=== PATIENT | female | born 1960 ===

== ENCOUNTER 2018-06-06 22:58 | Inpatient (IN) | payer BC ==
[2018-06-06] MEDS ORDERED: Dextrose 50% SYRINGE Inj (50 ml) ONE (23:19)
[2018-06-06] MEDS ORDERED: Dextrose 50% SYRINGE Inj (50 ml) IV STA (23:28)
[2018-06-06 23:55] LABS: BASO % 0.5 % (0.0-2.0); EOS % 0.7 % (0.0-4.0); HEMOGLOBIN 12.1 g/dL (11.0-16.0); LYMPH # 1.3 K/uL (1.0-4.3); LYMPH % 30.9 % (20.0-40.0); MEAN CELL VOLUME 92.3 fL (81.0-99.0); MEAN CORPUSCULAR HEMOGLOBIN 32.2 pg (27.0-31.0); MEAN CORPUSCULAR HGB CONC 34.9 g/dL (33.0-37.0); MEAN PLATELET VOLUME 8.3 fL (7.2-11.7); MONO # 0.5 K/uL (0.0-0.8); MONO % 11.4 % (0.0-10.0); NEUT # 2.4 K/uL (1.8-7.0); NEUT % 56.5 % (50.0-75.0); NRBC % 0.1 % (0.0-2.0); RBC 3.74 Mil/uL (3.80-5.20); RED CELL DISTRIBUTION WIDTH 13.3 % (11.5-14.5); WHITE BLOOD COUNT 4.3 K/uL (4.8-10.8)
[2018-06-07 00:03] LABS: INR 1.1; PROTHROMBIN TIME 12.4 SECONDS (9.7-12.2)
[2018-06-07 00:07] LABS: ALB/GLOB RATIO 1.6 (1.0-2.1); ALBUMIN 4.2 g/dL (3.5-5.0); ALT/SGPT 27 U/L (9-52); AST/SGOT 19 U/L (14-36); BLOOD UREA NITROGEN 14 mg/dL (7-17); CALCIUM 9.6 mg/dl (8.6-10.4); GFR NON-AFRICAN AMERICAN > 60
--- NOTE | 2018-06-07 00:24 | C.PDOC ---
History Of Present Illness 57 year old female with a Hx of hypothyroidism and gastritis brought in by EMS after having a syncopal episode at approximately 2230. Patient states she felt generalized weakness and syncopized for several minutes as per family. Patient notes she hit her head on the floor and admits to some dizziness. Denies headache, chest pain, SOB, abdominal pain, nausea, vomiting, diarrhea, or prior Hx of syncope. Time Seen by Provider: 06/06/18 23:08 Chief Complaint (Nursing): Syncope History Per: Patient History/Exam Limitations: no limitations Onset/Duration Of Symptoms: Hrs Current Symptoms Are (Timing): Still Present Number Of Syncopal Episodes: 1 Activity At Onset Of Symptoms: Standing Associated Symptoms Preceding Syncopal Episode: Other (Generalized weakness) Seizure Or Post-ictal Symptoms: None Fall Associated With With Symptoms: Yes, Positive Injury Recent travel outside of the [place]: No - Symptoms Of CVA Associated Symptoms: denies: Impaired Speech, Seizure Activity, New Vision Deficit(Left), New Vision Deficit(Right), Decreased Ability To Walk, New Confusion Past Medical History Reviewed: Historical Data, Nursing Documentation, Vital Signs Vital Signs: Last Vital Signs Temp 98.4 F 06/06/18 23:05 Pulse 64 06/07/18 00:58 Resp 18 06/07/18 00:58 BP 111/57 L 06/07/18 00:58 Pulse Ox 98 06/07/18 00:58 - Medical History PMH: Hypothyroidism Denies: Chronic Kidney Disease Family History: States: Unknown Family Hx - Social History Hx Alcohol Use: Yes Hx Substance Use: No - Immunization History Hx Tetanus Toxoid Vaccination: No Hx Influenza Vaccination: No Hx Pneumococcal Vaccination: No Review Of Systems Except As Marked, All Systems Reviewed And Found Negative. Constitutional: Positive for: Weakness Neurological: Positive for: Dizziness, Other (Syncope) Physical Exam - Physical Exam Appears: Non-toxic, Other (Fatigued) Skin: Normal Color, Warm, Dry Head: Atraumatic, Normacephalic Eye(s): bilateral: Normal Inspection, PERRL, EOMI Oral Mucosa: Moist Neck: Normal, Supple Chest: Symmetrical, No Tenderness Cardiovascular: Rhythm Regular Respiratory: Normal Breath Sounds, No Rales, No Rhonchi, No Wheezing Gastrointestinal/Abdominal: Soft, No Tenderness Extremity: Normal ROM (x4) Neurological/Psych: Oriented x3, Normal Speech, Normal Cognition, Normal Motor, Normal Sensation Gait: Steady ED Course And Treatment - Laboratory Results Result Diagrams: 06/06/18 23:52 06/06/18 23:52 ECG: Interpreted By Me, Viewed By Me ECG Rhythm: Atrial Flutter ECG Interpretation: Normal Interpretation Of ECG: No acute ST/T wave changes Rate From EC O2 Sat by Pulse Oximetry: 95 (Room air) Pulse Ox Interpretation: Normal - CT Scan/US CT head Other Rad Studies (CT/US): Read By Radiologist, Radiology Report Reviewed CT/US Interpretation: EXAM: CT Head With Intravenous Contrast. EXAM DATE/TIME : 06/06/2018 11:25 PM. CLINICAL HISTORY: 57 years old, female; Signs and symptoms; Syncope and collapse. TECHNIQUE: Axial computed tomography images of the head/brain with intravenous contrast. All CT scans at this facility use at least one of these dose optimization techniques: automated. exposure control ; mA and/or kV adjustment per patient size (includes targeted exams where dose is. matched to clinical indication); or iterative reconstruction. Coronal and sagittal reformatted images were created and reviewed. COMPARISON: No relevant prior studies available. FINDINGS: Brain: Normal. No hemorrhage. No significant white matter disease. No edema. Ventricles: Normal. No ventriculomegaly. Bones/joints: Normal. No acute fracture. Sinuses: Normal as visualized. No acute sinusitis. Mastoid air cells: Normal as visualized. No mastoid effusion. Soft tissues: Normal. IMPRESSION: No acute findings. Progress Note: CT head, EKG, and blood work ordered. Disposition Counseled Patient/Family Regarding: Studies Performed, Diagnosis, Need For Followup - Disposition Referrals: [facility] [Outside] Disposition: AGAINST MEDICAL ADVICE Disposition Time: 01:10 Condition: STABLE Additional Instructions: YOU ARE SIGNING OUT AGAINST MY MEDICAL ADVICE. YOU RISK WORSENING OF CURRENT CONSDITION, AND POSSIBLY EVEN ! DRINK PLENTY OF FLUIDS AND EAT REGULARLY RETURN TO EMERGENCY ROOM IMMEDIATELY IF SYMPTOMS WORSEN FOLLOW UP WITH YOUR DOCTOR/CLINIC IN 1-2 DAYS ESTS FIRMANDO CONTRA GIDEON ESPINO. USTED RIESGOS EL DESARROLLO DE LA CONSIDERACIN ACTUAL, Y POSIBLEMENTE INCLUSO LA MUERTE! JOAN ABUNDANTE LQUIDO Y COMA REGULARMENTE VUELVA A LA ALEX DE EMERGENCIA INMEDIATAMENTE SI LOS SNTOMAS FUNCIONAN SEGUIMIENTO CON STRAUSS MDICO / CLNICA EN 1-2 ST Instructions: Syncope (Fainting) (DC) Forms: [employer] (Italian), (AMA) Informed Refusal Print Language: RWANDAN - POA Present On Arrival: None - Clinical Impression Clinical Impression: Syncope, Left against medical advice - Scribe Statement The provider has reviewed the documentation as recorded by the Scribe Jovi Lynne All medical record entries made by the Scribe were at my direction and personally dictated by me. I have reviewed the chart and agree that the record accurately reflects my personal performance of the history, physical exam, medical decision making, and the department course for this patient. I have also personally directed, reviewed, and agree with the discharge instructions and disposition.
[2018-06-07] MEDS ORDERED: Potassium Chloride 20 mEq ER Tab PO STA (00:26)
[2018-06-07] MEDS ORDERED: Potassium Chloride 20 mEq ER Tab PO ONE (00:38)
[2018-06-07] MEDS: Levothyroxine 75 MCG TAB PO SCH (05:51)
[2018-06-07 07:42] VITALS: RESP 20
[2018-06-07 08:44] LABS: CK-MB 1.16 ng/mL (0.0-3.38)
[2018-06-07] MEDS: Pantoprazole 40 mg EC Tab PO SCH (09:14)
[2018-06-07] MEDS: Enoxaparin 40 mg Syringe SC SCH (09:14)
--- NOTE | 2018-06-07 10:34 | CT ---
Date of service: 06/06/2018 PROCEDURE: CT HEAD WITH CONTRAST HISTORY: syncope COMPARISON: No prior study available comparison TECHNIQUE: Axial computed tomography images were obtained through the head/brain with intravenous contrast. Contrast dose: Radiation dose: Total exam DLP = 939.04 the the mGy-cm. This CT exam was performed using one or more of the following dose reduction techniques: Automated exposure control, adjustment of the mA and/or kV according to patient size, and/or use of iterative reconstruction technique. FINDINGS: HEMORRHAGE: No intracranial hemorrhage. BRAIN: No mass, mass effect or edema. No abnormal intracranial enhancement. No atrophy or chronic microvascular ischemic changes. VENTRICLES: Unremarkable. No hydrocephalus. CALVARIUM: Unremarkable. PARANASAL SINUSES: Minor mucosal thickening seen in the right maxillary antrum. MASTOID AIR CELLS: Unremarkable as visualized. No mastoid effusion. OTHER FINDINGS: None. IMPRESSION: Normal contrast enhanced CT of the head.
--- NOTE | 2018-06-07 12:44 | CP.PCM.CON ---
History of Present Illness - History of Present Illness History of Present Illness: 57 year old female with a Hx of hypothyroidism and gastritis brought in by EMS after having a syncopal episode at approximately 2230. Patient states she felt generalized weakness and syncopized for several minutes as per family. Patient notes she hit her head on the floor and admits to some dizziness. Denies headache, chest pain, SOB, abdominal pain, nausea, vomiting, diarrhea, or prior Hx of syncope. Ordinarily patient is mod active works 2 jobs and denies ANGINA or CHF Cardiac Hx: No known CAD/AL/CVA PMHX: mild gastritis chronic stable, Hypothyroidism chronic stable, Hx of thyroid nodule biopsy told was negative, Hx of low PLT HEME w/u was normal PSHX: x2, breast biopsy, thyroid byopsy Social: non-smoker, no ETOH or Drugs Review of Systems - Review of Systems All systems: reviewed and no additional remarkable complaints except Past Patient History - Infectious Disease Hx of Infectious Diseases: None - Past Medical History & Family History Past Medical History?: Yes - Past Social History Smoking Status: Never Smoked - CARDIAC Hx Cardiac Disorders: No - PULMONARY Hx Respiratory Disorders: No - NEUROLOGICAL Hx Neurological Disorder: No - HEENT Hx HEENT Problems: No - RENAL Hx Chronic Kidney Disease: No - ENDOCRINE/METABOLIC Hx Hypothyroidism: Yes - HEMATOLOGICAL/ONCOLOGICAL Hx Blood Disorders: No - INTEGUMENTARY Hx Dermatological Problems: No - MUSCULOSKELETAL/RHEUMATOLOGICAL Hx Falls: Yes - GASTROINTESTINAL Hx Gastrointestinal Disorders: No - GENITOURINARY/GYNECOLOGICAL Hx Genitourinary Disorders: No - PSYCHIATRIC Hx Substance Use: No - SURGICAL HISTORY Hx Surgeries: Yes Hx Breast Biopsy: Yes (LEFT BREAST) Hx Section: Yes (X2) - ANESTHESIA Hx Anesthesia: Yes Hx Anesthesia Reactions: No Hx Malignant Hyperthermia: No Meds Allergies/Adverse Reactions: Allergies Allergy/AdvReac Type Severity Reaction Status Date / Time No Known Allergies Allergy Unverified 06/26/14 11:29 - Medications Medications: Current Medications Aspirin (Aspirin) 325 mg PO DAILY [facility] Last Admin: 06/07/18 09:14 Dose: 325 mg Enoxaparin Sodium (Lovenox) 40 mg SC DAILY [facility] Last Admin: 06/07/18 09:14 Dose: 40 mg Ergocalciferol (Drisdol 50,000 Intl Units Cap) 1 cap PO QWK [facility] Levothyroxine Sodium (Synthroid) 75 mcg PO DAILY@0630 [facility] Last Admin: 06/07/18 05:51 Dose: 75 mcg Pantoprazole Sodium (Protonix Ec Tab) 40 mg PO DAILY [facility] Last Admin: 06/07/18 09:14 Dose: 40 mg Pneumococcal Polyvalent Vaccine (Pneumovax 23 Vaccine) 0.5 ml IM .ONCE ONE Stop: 06/08/18 10:01 Physical Exam - Constitutional Appears: No Acute Distress - Head Exam Head Exam: ATRAUMATIC, NORMAL INSPECTION, NORMOCEPHALIC - Eye Exam Eye Exam: EOMI, Normal appearance, PERRL - ENT Exam ENT Exam: Mucous Membranes Moist, Normal Exam - Neck Exam Neck exam: Positive for: Normal Inspection - Respiratory Exam Respiratory Exam: Clear to Auscultation Bilateral, NORMAL BREATHING PATTERN. absent: Rhonchi, Wheezes - Cardiovascular Exam Cardiovascular Exam: REGULAR RHYTHM, +S1, +S2. absent: Gallop, Rubs, +S4, Systolic Murmur - GI/Abdominal Exam GI & Abdominal Exam: Normal Bowel Sounds, Soft. absent: Tenderness - Extremities Exam Extremities exam: Positive for: normal inspection, pedal pulses present. Negative for: calf tenderness, pedal edema - Back Exam Back exam: NORMAL INSPECTION. absent: paraspinal tenderness, rash noted - Neurological Exam Neurological exam: Alert, CN II-XII Intact, Oriented x3 - Psychiatric Exam Psychiatric exam: Normal Affect, Normal Mood - Skin Skin Exam: Intact, Normal Color, Warm Results - Vital Signs Recent Vital Signs: Last Vital Signs Temp 98.0 F 06/07/18 07:00 Pulse 61 06/07/18 07:05 Resp 20 06/07/18 07:00 BP 102/64 06/07/18 07:00 Pulse Ox 100 06/07/18 07:00 - Labs Result Diagrams: 06/06/18 23:52 06/06/18 23:52 Labs: Laboratory Results - last 24 hr 06/06/18 06/06/18 06/06/18 23:48 23:52 23:52 WBC 4.3 L RBC 3.74 L Hgb 12.1 Hct 34.6 MCV 92.3 MCH 32.2 H MCHC 34.9 RDW 13.3 Plt Count 172 MPV 8.3 Neut % (Auto) 56.5 Lymph % (Auto) 30.9 [place] % (Auto) 11.4 H Eos % (Auto) 0.7 Baso % (Auto) 0.5 Neut # (Auto) 2.4 Lymph # (Auto) 1.3 [place] # (Auto) 0.5 Eos # (Auto) 0.0 Baso # (Auto) 0.0 PT 12.4 H INR 1.1 APTT 33 Sodium Potassium Chloride Carbon Dioxide Anion Gap BUN Creatinine Est GFR ( Amer) Est GFR (Non-Af Amer) POC Glucose (mg/dL) 160 H Random Glucose Calcium Total Bilirubin AST ALT Alkaline Phosphatase Total Creatine Kinase CK-MB (Mass) Troponin I Total Protein Albumin Globulin Albumin/Globulin Ratio [facility] 3rd Generation 06/06/18 06/07/18 06/07/18 23:52 00:20 06:58 WBC RBC Hgb Hct MCV MCH MCHC RDW Plt Count MPV Neut % (Auto) Lymph % (Auto) [place] % (Auto) Eos % (Auto) Baso % (Auto) Neut # (Auto) Lymph # (Auto) [place] # (Auto) Eos # (Auto) Baso # (Auto) PT INR APTT Sodium 142 Potassium 3.2 L Chloride 103 Carbon Dioxide 30 Anion Gap 13 BUN 14 Creatinine 0.5 L Est GFR ( Amer) > 60 Est GFR (Non-Af Amer) > 60 POC Glucose (mg/dL) 82 Random Glucose 72 Calcium 9.6 Total Bilirubin 1.0 AST 19 ALT 27 Alkaline Phosphatase 54 Total Creatine Kinase 81 CK-MB (Mass) 1.10 Troponin I < 0.0120 Total Protein 6.7 Albumin 4.2 Globulin 2.6 Albumin/Globulin Ratio 1.6 [facility] 3rd Generation 2.70 06/07/18 06/07/18 07:50 10:54 WBC RBC Hgb Hct MCV MCH MCHC RDW Plt Count MPV Neut % (Auto) Lymph % (Auto) [place] % (Auto) Eos % (Auto) Baso % (Auto) Neut # (Auto) Lymph # (Auto) [place] # (Auto) Eos # (Auto) Baso # (Auto) PT INR APTT Sodium Potassium Chloride Carbon Dioxide Anion Gap BUN Creatinine Est GFR ( Amer) Est GFR (Non-Af Amer) POC Glucose (mg/dL) 98 Random Glucose Calcium Total Bilirubin AST ALT Alkaline Phosphatase Total Creatine Kinase 89 CK-MB (Mass) 1.16 Troponin I < 0.0120 Total Protein Albumin Globulin Albumin/Globulin Ratio TSH 3rd Generation - EKG Data EKG Interpreted by: Myself EKG shows normal: Sinus rhythm Rate: Normal Assessment & Plan - Assessment and Plan (Free Text) Assessment: 57 y/o with a syncopal episode > Low normal BP range > Normal EKG > AL ruled out > normal cardiovascular exam > No arrythmia on telemetry > no acute abnormality on CT head. Findings suggest vasovagal/orthostatic mediated likely dehydration No additional cardiac testing is needed healthy hydration, cardiac healthy diet suggest Stable for d/c from cardiac standpoint.
--- NOTE | 2018-06-07 17:32 | CP.PCM.CON ---
History of Present Illness - History of Present Illness History of Present Illness: CONSULT DICTATED LOC APPROXIMATELY 10 MINIUTES POST CONCUSSION SYNDROME R/O SEIZURES /VBI MRI/EEG/CAROTID/ECHO STROKE PROPHYLAXIS Past Patient History - Infectious Disease Hx of Infectious Diseases: None - Past Medical History & Family History Past Medical History?: Yes - Past Social History Smoking Status: Never Smoked - CARDIAC Hx Cardiac Disorders: No - PULMONARY Hx Respiratory Disorders: No - NEUROLOGICAL Hx Neurological Disorder: No - HEENT Hx HEENT Problems: No - RENAL Hx Chronic Kidney Disease: No - ENDOCRINE/METABOLIC Hx Hypothyroidism: Yes - HEMATOLOGICAL/ONCOLOGICAL Hx Blood Disorders: No - INTEGUMENTARY Hx Dermatological Problems: No - MUSCULOSKELETAL/RHEUMATOLOGICAL Hx Falls: Yes - GASTROINTESTINAL Hx Gastrointestinal Disorders: No - GENITOURINARY/GYNECOLOGICAL Hx Genitourinary Disorders: No - PSYCHIATRIC Hx Substance Use: No - SURGICAL HISTORY Hx Surgeries: Yes Hx Breast Biopsy: Yes (LEFT BREAST) Hx Section: Yes (X2) - ANESTHESIA Hx Anesthesia: Yes Hx Anesthesia Reactions: No Hx Malignant Hyperthermia: No Meds Allergies/Adverse Reactions: Allergies Allergy/AdvReac Type Severity Reaction Status Date / Time No Known Allergies Allergy Unverified 06/26/14 11:29 - Medications Medications: Current Medications Aspirin (Aspirin) 325 mg PO DAILY [facility] Last Admin: 06/07/18 09:14 Dose: 325 mg Enoxaparin Sodium (Lovenox) 40 mg SC DAILY [facility] Last Admin: 06/07/18 09:14 Dose: 40 mg Ergocalciferol (Drisdol 50,000 Intl Units Cap) 1 cap PO QWK [facility] Levothyroxine Sodium (Synthroid) 75 mcg PO DAILY@0630 [facility] Last Admin: 06/07/18 05:51 Dose: 75 mcg Pantoprazole Sodium (Protonix Ec Tab) 40 mg PO DAILY [facility] Last Admin: 06/07/18 09:14 Dose: 40 mg Pneumococcal Polyvalent Vaccine (Pneumovax 23 Vaccine) 0.5 ml IM .ONCE ONE Stop: 06/08/18 10:01 Results - Vital Signs Recent Vital Signs: Last Vital Signs Temp 98.0 F 06/07/18 15:40 Pulse 65 06/07/18 15:40 Resp 20 06/07/18 15:40 BP 104/61 06/07/18 15:40 Pulse Ox 96 06/07/18 15:40 - Labs Result Diagrams: 06/06/18 23:52 06/06/18 23:52 Labs: Laboratory Results - last 24 hr 06/06/18 06/06/18 06/06/18 23:48 23:52 23:52 WBC 4.3 L RBC 3.74 L Hgb 12.1 Hct 34.6 MCV 92.3 MCH 32.2 H MCHC 34.9 RDW 13.3 Plt Count 172 MPV 8.3 Neut % (Auto) 56.5 Lymph % (Auto) 30.9 [place] % (Auto) 11.4 H Eos % (Auto) 0.7 Baso % (Auto) 0.5 Neut # (Auto) 2.4 Lymph # (Auto) 1.3 [place] # (Auto) 0.5 Eos # (Auto) 0.0 Baso # (Auto) 0.0 PT 12.4 H INR 1.1 APTT 33 Sodium Potassium Chloride Carbon Dioxide Anion Gap BUN Creatinine Est GFR ( Amer) Est GFR (Non-Af Amer) POC Glucose (mg/dL) 160 H Random Glucose Hemoglobin A1c Calcium Total Bilirubin AST ALT Alkaline Phosphatase Total Creatine Kinase CK-MB (Mass) Troponin I Total Protein Albumin Globulin Albumin/Globulin Ratio TSH 3rd Generation 06/06/18 06/07/18 06/07/18 23:52 00:20 06:58 WBC RBC Hgb Hct MCV MCH MCHC RDW Plt Count MPV Neut % (Auto) Lymph % (Auto) [place] % (Auto) Eos % (Auto) Baso % (Auto) Neut # (Auto) Lymph # (Auto) [place] # (Auto) Eos # (Auto) Baso # (Auto) PT INR APTT Sodium 142 Potassium 3.2 L Chloride 103 Carbon Dioxide 30 Anion Gap 13 BUN 14 Creatinine 0.5 L Est GFR ( Amer) > 60 Est GFR (Non-Af Amer) > 60 POC Glucose (mg/dL) 82 Random Glucose 72 Hemoglobin A1c Calcium 9.6 Total Bilirubin 1.0 AST 19 ALT 27 Alkaline Phosphatase 54 Total Creatine Kinase 81 CK-MB (Mass) 1.10 Troponin I < 0.0120 Total Protein 6.7 Albumin 4.2 Globulin 2.6 Albumin/Globulin Ratio 1.6 TSH 3rd Generation 2.70 06/07/18 06/07/18 06/07/18 07:50 10:54 16:58 WBC RBC Hgb Hct MCV MCH MCHC RDW Plt Count MPV Neut % (Auto) Lymph % (Auto) [place] % (Auto) Eos % (Auto) Baso % (Auto) Neut # (Auto) Lymph # (Auto) [place] # (Auto) Eos # (Auto) Baso # (Auto) PT INR APTT Sodium Potassium Chloride Carbon Dioxide Anion Gap BUN Creatinine Est GFR ( Amer) Est GFR (Non-Af Amer) POC Glucose (mg/dL) 98 95 Random Glucose Hemoglobin A1c Calcium Total Bilirubin AST ALT Alkaline Phosphatase Total Creatine Kinase 89 CK-MB (Mass) 1.16 Troponin I < 0.0120 Total Protein Albumin Globulin Albumin/Globulin Ratio TSH 3rd Generation 06/07/18 06/07/18 17:00 17:00 WBC RBC Hgb Hct MCV MCH MCHC RDW Plt Count MPV Neut % (Auto) Lymph % (Auto) [place] % (Auto) Eos % (Auto) Baso % (Auto) Neut # (Auto) Lymph # (Auto) [place] # (Auto) Eos # (Auto) Baso # (Auto) PT INR APTT Sodium Potassium Chloride Carbon Dioxide Anion Gap BUN Creatinine Est GFR ( Amer) Est GFR (Non-Af Amer) POC Glucose (mg/dL) Random Glucose Hemoglobin A1c 5.6 Calcium Total Bilirubin AST ALT Alkaline Phosphatase Total Creatine Kinase 79 CK-MB (Mass) Troponin I Total Protein Albumin Globulin Albumin/Globulin Ratio TSH 3rd Generation
[2018-06-07 17:33] LABS: CK-MB 0.96 ng/mL (0.0-3.38)
[2018-06-07 17:38] LABS: FREE T4 1.42 ng/dL (0.78-2.19)
[2018-06-07 18:27] LABS: FOLATE 7.4 ng/mL
--- NOTE | 2018-06-07 19:12 | CP.PCM.HP ---
Past Patient History - Infectious Disease Hx of Infectious Diseases: None - Past Medical History & Family History Past Medical History?: Yes - Past Social History Smoking Status: Never Smoked - CARDIAC Hx Cardiac Disorders: No - PULMONARY Hx Respiratory Disorders: No - NEUROLOGICAL Hx Neurological Disorder: No - HEENT Hx HEENT Problems: No - RENAL Hx Chronic Kidney Disease: No - ENDOCRINE/METABOLIC Hx Hypothyroidism: Yes - HEMATOLOGICAL/ONCOLOGICAL Hx Blood Disorders: No - INTEGUMENTARY Hx Dermatological Problems: No - MUSCULOSKELETAL/RHEUMATOLOGICAL Hx Falls: Yes - GASTROINTESTINAL Hx Gastrointestinal Disorders: No - GENITOURINARY/GYNECOLOGICAL Hx Genitourinary Disorders: No - PSYCHIATRIC Hx Substance Use: No - SURGICAL HISTORY Hx Surgeries: Yes Hx Breast Biopsy: Yes (LEFT BREAST) Hx Section: Yes (X2) - ANESTHESIA Hx Anesthesia: Yes Hx Anesthesia Reactions: No Hx Malignant Hyperthermia: No Meds Allergies/Adverse Reactions: Allergies Allergy/AdvReac Type Severity Reaction Status Date / Time No Known Allergies Allergy Unverified 06/26/14 11:29 Physical Exam - Constitutional Appears: Well - Head Exam Head Exam: ATRAUMATIC, NORMAL INSPECTION, NORMOCEPHALIC - Eye Exam Eye Exam: EOMI, Normal appearance, PERRL Pupil Exam: NORMAL ACCOMODATION, PERRL - ENT Exam ENT Exam: Mucous Membranes Moist, Normal Exam - Neck Exam Neck exam: Positive for: Normal Inspection - Respiratory Exam Respiratory Exam: Decreased Breath Sounds - Cardiovascular Exam Cardiovascular Exam: REGULAR RHYTHM, +S1, +S2 - GI/Abdominal Exam GI & Abdominal Exam: Diminished Bowel Sounds, Soft - Rectal Exam Rectal Exam: Deferred Results - Vital Signs Recent Vital Signs: Last Vital Signs Temp 98.0 F 06/07/18 15:40 Pulse 62 06/07/18 16:00 Resp 20 06/07/18 15:40 BP 104/61 06/07/18 15:40 Pulse Ox 96 06/07/18 15:40 - Labs Result Diagrams: 06/06/18 23:52 06/06/18 23:52 Labs: Laboratory Results - last 24 hr 06/06/18 06/06/18 06/06/18 23:48 23:52 23:52 WBC 4.3 L RBC 3.74 L Hgb 12.1 Hct 34.6 MCV 92.3 MCH 32.2 H MCHC 34.9 RDW 13.3 Plt Count 172 MPV 8.3 Neut % (Auto) 56.5 Lymph % (Auto) 30.9 Harris % (Auto) 11.4 H Eos % (Auto) 0.7 Baso % (Auto) 0.5 Neut # (Auto) 2.4 Lymph # (Auto) 1.3 Harris # (Auto) 0.5 Eos # (Auto) 0.0 Baso # (Auto) 0.0 PT 12.4 H INR 1.1 APTT 33 Sodium Potassium Chloride Carbon Dioxide Anion Gap BUN Creatinine Est GFR ( Amer) Est GFR (Non-Af Amer) POC Glucose (mg/dL) 160 H Random Glucose Hemoglobin A1c Calcium Total Bilirubin AST ALT Alkaline Phosphatase Total Creatine Kinase CK-MB (Mass) Troponin I Total Protein Albumin Globulin Albumin/Globulin Ratio Vitamin B12 Folate Free T4 TSH 3rd Generation 06/06/18 06/07/18 06/07/18 23:52 00:20 06:58 WBC RBC Hgb Hct MCV MCH MCHC RDW Plt Count MPV Neut % (Auto) Lymph % (Auto) Harris % (Auto) Eos % (Auto) Baso % (Auto) Neut # (Auto) Lymph # (Auto) Harris # (Auto) Eos # (Auto) Baso # (Auto) PT INR APTT Sodium 142 Potassium 3.2 L Chloride 103 Carbon Dioxide 30 Anion Gap 13 BUN 14 Creatinine 0.5 L Est GFR ( Amer) > 60 Est GFR (Non-Af Amer) > 60 POC Glucose (mg/dL) 82 Random Glucose 72 Hemoglobin A1c Calcium 9.6 Total Bilirubin 1.0 AST 19 ALT 27 Alkaline Phosphatase 54 Total Creatine Kinase 81 CK-MB (Mass) 1.10 Troponin I < 0.0120 Total Protein 6.7 Albumin 4.2 Globulin 2.6 Albumin/Globulin Ratio 1.6 Vitamin B12 Folate Free T4 TSH 3rd Generation 2.70 06/07/18 06/07/18 06/07/18 07:50 10:54 16:58 WBC RBC Hgb Hct MCV MCH MCHC RDW Plt Count MPV Neut % (Auto) Lymph % (Auto) Harris % (Auto) Eos % (Auto) Baso % (Auto) Neut # (Auto) Lymph # (Auto) Harris # (Auto) Eos # (Auto) Baso # (Auto) PT INR APTT Sodium Potassium Chloride Carbon Dioxide Anion Gap BUN Creatinine Est GFR ( Amer) Est GFR (Non-Af Amer) POC Glucose (mg/dL) 98 95 Random Glucose Hemoglobin A1c Calcium Total Bilirubin AST ALT Alkaline Phosphatase Total Creatine Kinase 89 CK-MB (Mass) 1.16 Troponin I < 0.0120 Total Protein Albumin Globulin Albumin/Globulin Ratio Vitamin B12 Folate Free T4 TSH 3rd Generation 06/07/18 06/07/18 06/07/18 17:00 17:00 17:00 WBC RBC Hgb Hct MCV MCH MCHC RDW Plt Count MPV Neut % (Auto) Lymph % (Auto) Harris % (Auto) Eos % (Auto) Baso % (Auto) Neut # (Auto) Lymph # (Auto) Harris # (Auto) Eos # (Auto) Baso # (Auto) PT INR APTT Sodium Potassium Chloride Carbon Dioxide Anion Gap BUN Creatinine Est GFR ( Amer) Est GFR (Non-Af Amer) POC Glucose (mg/dL) Random Glucose Hemoglobin A1c 5.6 Calcium Total Bilirubin AST ALT Alkaline Phosphatase Total Creatine Kinase 79 CK-MB (Mass) 0.96 Troponin I < 0.0120 Total Protein Albumin Globulin Albumin/Globulin Ratio Vitamin B12 Folate Free T4 1.42 TSH 3rd Generation 1.06 06/07/18 17:00 WBC RBC Hgb Hct MCV MCH MCHC RDW Plt Count MPV Neut % (Auto) Lymph % (Auto) Harris % (Auto) Eos % (Auto) Baso % (Auto) Neut # (Auto) Lymph # (Auto) Harris # (Auto) Eos # (Auto) Baso # (Auto) PT INR APTT Sodium Potassium Chloride Carbon Dioxide Anion Gap BUN Creatinine Est GFR ( Amer) Est GFR (Non-Af Amer) POC Glucose (mg/dL) Random Glucose Hemoglobin A1c Calcium Total Bilirubin AST ALT Alkaline Phosphatase Total Creatine Kinase CK-MB (Mass) Troponin I Total Protein Albumin Globulin Albumin/Globulin Ratio Vitamin B12 463 Folate 7.4 Free T4 TSH 3rd Generation
[2018-06-07 19:29] LABS: HDL CHOLESTEROL 63 mg/dL (30-70)
[2018-06-07 19:41] LABS: LDL CHOLESTEROL 76 mg/dL (0-129)
--- NOTE | 2018-06-08 02:38 | CON ---
Copied To: Duane Lawson MD Attending MD: Duane Lawson MD DATE: 06/07/2018 DATE OF ADMISSION: 06/06/2018 DATE OF EVALUATION: 06/07/2018 CHIEF COMPLAINT: Syncopal attack. The patient was brought in to [facility] following an episode of loss of consciousness at home. From neurologic point of view, I was called in to evaluate her for further management. HISTORY OF PRESENT ILLNESS: Ms. Avril Boswell is a 57-year-old thinly built, right-handed Bangladeshi-speaking female, presenting with abrupt onset of fall and injured her head as well as her left forearm. Preceding fall, she could not recall any warning sign. She went to the bathroom to urinate. She could not recall whether she did urinate or not. No urination on the floor at the scene. No bowel or bladder incontinence. No bitten tongue. Besides the loss of consciousness, she denies any visual or bulbar dysfunction or focal weakness. PAST MEDICAL HISTORY: Arthritis, hypothyroidism. PERSONAL HISTORY: Denies smoking or alcohol use. ALLERGIES: NO KNOWN ALLERGIES. MEDICATIONS: Aspirin, vitamin D, Lovenox, Protonix, and Synthroid. PHYSICAL EXAMINATION: VITAL SIGNS: Blood pressure 104/61, mean artery pressure 75, respiratory rate 18, temperature afebrile. NECK: Supple. No carotid bruits. HEART: Sounds are regular. CHEST: Fair air entry. EXTREMITIES: No edema in legs. NEUROLOGIC EXAMINATION: Mental status examination: She is awake, alert and oriented to person, place and time. Speech is clear. Naming, repetition, fluency, comprehension all within normal. Cranial nerve examination: Visual field intact. Pupils reactive. Extraocular movements normal. No nystagmus. No facial sensory deficit. No facial asymmetry. Hearing is normal. Tongue is midline. Good gag. Motor examination: Outstretched hand with eyes closed, no drift noted. Power is symmetric on either side. Deep tendon reflexes brisk reflexes both biceps, brachialis, triceps, knee and ankle. Plantars are downgoing. Sensory examination: Grossly intact. Coordination, lilmoi-zkoa-gxhgny test is intact. WORKUP: CT of the head reported as no acute pathology. Blood workup: WBC 4.3, hemoglobin 12.1, hematocrit 34.6, platelet 172. PT 12.4, INR 1.1, PTT 33. Sodium 142; potassium 3.2, which was corrected with potassium supplement; chloride 103; bicarbonate 30; BUN 14; creatinine 0.5; GFR more than 60; glucose 95. Hemoglobin A1c 5.6. Liver functions are normal. TSH pending. CONCLUSION: Ms. Avril Boswell as per neurological examination with a history suggestive of possible loss of consciousness related to micturition event. This probably secondary to her weakness from hypokalemia made her to fall, then hit her head, possible post-concussion syndrome as well. RECOMMENDATIONS: 1. Correct the potassium and repeat the potassium level. 2. Keep the blood pressure, mean artery pressure around 100. 3. Stroke prophylaxis, aspirin and statin following evaluation of a lipid panel. 4. The patient is also recommended to have MRI of the brain to rule out any structural cause for her fall. Carotid Doppler to assess any stenosis. Echocardiogram to assess any cardiac cause for her fall. 5. EEG to be done to rule out any electrographic seizures. 6. The patient's condition being discussed with her family members. The patient will be followed closely with you. Duane Lawson MD
[2018-06-08] MEDS: Levothyroxine 75 MCG TAB PO SCH (05:45)
[2018-06-08 07:17] LABS: HEMOGLOBIN 12.4 g/dL (11.0-16.0); MEAN CELL VOLUME 92.5 fL (81.0-99.0); MEAN CORPUSCULAR HEMOGLOBIN 31.9 pg (27.0-31.0); MEAN CORPUSCULAR HGB CONC 34.4 g/dL (33.0-37.0); MEAN PLATELET VOLUME 8.4 fL (7.2-11.7); RBC 3.89 Mil/uL (3.80-5.20); RED CELL DISTRIBUTION WIDTH 13.2 % (11.5-14.5); WHITE BLOOD COUNT 3.2 K/uL (4.8-10.8)
[2018-06-08 07:39] LABS: ALB/GLOB RATIO 1.6 (1.0-2.1); ALBUMIN 3.8 g/dL (3.5-5.0); ALT/SGPT 25 U/L (9-52); AST/SGOT 22 U/L (14-36); BLOOD UREA NITROGEN 13 mg/dL (7-17); GFR NON-AFRICAN AMERICAN > 60
[2018-06-08] MEDS ORDERED: Ergocalciferol 50,000 Intl Units Cap PO SCH (10:00)
[2018-06-08] MEDS ORDERED: Pneumococcal 23-Valent Vaccine IM ONE (10:00)
[2018-06-08] MEDS: Pantoprazole 40 mg EC Tab PO SCH (10:05)
[2018-06-08] MEDS: Enoxaparin 40 mg Syringe SC SCH (10:05)
--- NOTE | 2018-06-08 11:01 | CP.PCM.PN ---
Subjective - Date & Time of Evaluation Date of Evaluation: 06/08/18 Time of Evaluation: 10:00 - Subjective Subjective: Progress Note for Dr. Ramesh Quinones's Service This is a 57 year old female with PMHx of Hypothyroidism who presented to the ED after a syncopal episode. Patient was seen and examined at bedside. Patient reports she is back to baseline. Denied any dizziness. Denied fever, chills, headache, chest pain, shortness of breath, abdominal pain, n/v/d/c, or urinary symptoms. Objective - Vital Signs/Intake and Output Vital Signs (last 24 hours): Temp Pulse Resp BP Pulse Ox 97.6 F 48 L 20 95/57 L 96 06/08/18 07:00 06/08/18 07:46 06/08/18 07:00 06/08/18 07:00 06/08/18 07:00 - Medications Medications: Current Medications Aspirin (Aspirin) 325 mg PO DAILY [facility] Last Admin: 06/08/18 10:05 Dose: 325 mg Enoxaparin Sodium (Lovenox) 40 mg SC DAILY [facility] Last Admin: 06/08/18 10:05 Dose: 40 mg Ergocalciferol (Drisdol 50,000 Intl Units Cap) 1 cap PO QWK [facility] Last Admin: 06/08/18 10:05 Dose: 1 cap Levothyroxine Sodium (Synthroid) 75 mcg PO DAILY@0630 [facility] Last Admin: 06/08/18 05:45 Dose: 75 mcg Pantoprazole Sodium (Protonix Ec Tab) 40 mg PO DAILY [facility] Last Admin: 06/08/18 10:05 Dose: 40 mg - Labs Labs: 06/08/18 07:09 06/08/18 07:09 PT 12.4 SECONDS (9.7-12.2) H 06/06/18 23:52 INR 1.1 06/06/18 23:52 APTT 33 SECONDS (21-34) 06/06/18 23:52 - Constitutional Appears: No Acute Distress - Head Exam Head Exam: NORMAL INSPECTION, NORMOCEPHALIC - Eye Exam Eye Exam: EOMI, Normal appearance, PERRL Pupil Exam: NORMAL ACCOMODATION - ENT Exam ENT Exam: Mucous Membranes Moist, Normal Exam - Respiratory Exam Respiratory Exam: Clear to Ausculation Bilateral, NORMAL BREATHING PATTERN. absent: Decreased Breath Sounds - Cardiovascular Exam Cardiovascular Exam: REGULAR RHYTHM, RRR - GI/Abdominal Exam GI & Abdominal Exam: Soft, Normal Bowel Sounds. absent: Distended, Tenderness - Extremities Exam Extremities Exam: Normal Inspection. absent: Pedal Edema, Tenderness - Neurological Exam Neurological Exam: Alert, Awake, Oriented x3 Neuro motor strength exam: Left Upper Extremity: 5, Right Upper Extremity: 5, Left Lower Extremity: 5, Right Lower Extremity: 5 - Psychiatric Exam Psychiatric exam: Normal Affect, Normal Mood - Skin Skin Exam: Dry, Intact, Normal Color, Warm Assessment and Plan - Assessment and Plan (Free Text) Plan: Syncope --Neurology consulted Dr. Lawson - help appreciated -- Cardiology consulted - Dr. Mcadams help appreciated Imaging: Pending results - CT head - no acute pathology - Brain MRI - ECHO with bubble study - Carotid Dopplers - EEG Labs: - All WNL - Will have Orthostatics performed every shift Medications: - ASA 325mg daily, as stroke prophylaxis Hypothyroidism - Restarted home synthroid 75mcg daily - TSH / Free T4 WNL Hx Vitamin D Deficiency - Resumed Ergocalciferol Prophylactic Measures: - GI PPX: Protonix - DVT PPX: SCDs, Lovenox - PT Eval Disposition: Pending workup - brain MRI, ECHO, EEG, carotid dopplers - PT eval. All medical management as per Dr. Ramesh Quinones. DW Dr. Ramesh Quinones, Rebecca Keene DO, PGY2
--- NOTE | 2018-06-08 12:37 | PN ---
Copied To: Duane Lawson MD Attending MD: Duane Lawson MD DATE: 06/08/2018 NEUROLOGICAL PROBLEM: Syncopal attack. PHYSICAL EXAMINATION: VITAL SIGNS: Blood pressure 103/59, mean arterial pressure of 73, respiratory rate 18, temperature 97.7 with a pulse rate 59 and regular. The patient slept good. No new complaints. No dizziness. No chest pain. Examination, which is unchanged to compare with my previous examination. The patient is recommended to have MRI of the brain and electroencephalogram including carotid Doppler. The patient is on aspirin for stroke prophylaxis. If the patient is stable for next 12 hours period, the patient can be discharged and should have followup visit with us as an outpatient. Duane Lawson MD
[2018-06-08] MEDS ORDERED: Gadodiamide 287 mg/ml 20 ml IV ONE (12:40)
--- NOTE | 2018-06-08 15:39 | CARD ---
APPROVED REPORT Date of service: 06/06/2018 EKG Measurement Heart [id number] <Conclusion> Sinus rhythm RSR' or QR pattern in V1 suggests right ventricular conduction delay Abnormal ECG
[2018-06-08 15:56] VITALS: O2SAT 97
--- NOTE | 2018-06-08 17:21 | MRI ---
Date of service: 06/08/2018 PROCEDURE: MRI BRAIN WITH AND WITHOUT CONTRAST HISTORY: CASE MANAGEMENT RN ISCHEMIC PROCESS COMPARISON: None available. TECHNIQUE: Multiplanar, multisequence MR images of the brain were obtained with and without intravenous contrast enhancement. FINDINGS: HEMORRHAGE: None DWI: No evidence of an acute or early subacute infarction. BRAIN PARENCHYMA: Good corticomedullary differentiation is seen. Proportional, borderline, diffuse expansion of the ventriculosulcal and cisternal spaces is appreciated with infrequent white-matter signal changes compatible with diffuse cerebral atrophy and chronic microangiopathy. No suspicious extra-axial fluid collection is identified and the midline brain anatomy appears grossly nonfocal as imaged. There is no mass effect throughout.No atrophy or chronic microvascular ischemic changes. ENHANCEMENT: No abnormal intracranial enhancement. VENTRICLES: Unremarkable. No hydrocephalus. CRANIUM: Unremarkable. ORBITS: Grossly unremarkable. PARANASAL SINUSES/MASTOIDS: Clear VASCULAR SYSTEM: Skull base flow voids intact. OTHER FINDINGS: None . IMPRESSION: Minimal diffuse cerebral atrophy and trace chronic microangiopathy are identified which appear age-appropriate. The exam is otherwise negative including post gadolinium enhanced imaging.
--- NOTE | 2018-06-08 19:22 | CP.PCM.PN ---
Subjective - Date & Time of Evaluation Date of Evaluation: 06/08/18 Time of Evaluation: 13:00 - Subjective Subjective: clinically same Objective - Vital Signs/Intake and Output Vital Signs (last 24 hours): Temp Pulse Resp BP Pulse Ox 98.1 F 67 20 105/65 97 06/08/18 15:00 06/08/18 15:29 06/08/18 15:00 06/08/18 15:00 06/08/18 15:29 - Medications Medications: Current Medications Aspirin (Aspirin) 325 mg PO DAILY [facility] Last Admin: 06/08/18 10:05 Dose: 325 mg Enoxaparin Sodium (Lovenox) 40 mg SC DAILY [facility] Last Admin: 06/08/18 10:05 Dose: 40 mg Ergocalciferol (Drisdol 50,000 Intl Units Cap) 1 cap PO QWK [facility] Last Admin: 06/08/18 10:05 Dose: 1 cap Levothyroxine Sodium (Synthroid) 75 mcg PO DAILY@0630 [facility] Last Admin: 06/08/18 05:45 Dose: 75 mcg Pantoprazole Sodium (Protonix Ec Tab) 40 mg PO DAILY [facility] Last Admin: 06/08/18 10:05 Dose: 40 mg - Labs Labs: 06/08/18 07:09 06/08/18 07:09 PT 12.4 SECONDS (9.7-12.2) H 06/06/18 23:52 INR 1.1 06/06/18 23:52 APTT 33 SECONDS (21-34) 06/06/18 23:52 - Constitutional Appears: Well - Head Exam Head Exam: ATRAUMATIC, NORMAL INSPECTION, NORMOCEPHALIC - Eye Exam Eye Exam: EOMI, Normal appearance, PERRL Pupil Exam: NORMAL ACCOMODATION, PERRL - ENT Exam ENT Exam: Mucous Membranes Moist, Normal Exam - Neck Exam Neck Exam: Full ROM, Normal Inspection. absent: Lymphadenopathy - Respiratory Exam Respiratory Exam: Decreased Breath Sounds - Cardiovascular Exam Cardiovascular Exam: REGULAR RHYTHM, +S1, +S2 - GI/Abdominal Exam GI & Abdominal Exam: Soft, Diminished Bowel Sounds - Rectal Exam Rectal Exam: Deferred
[2018-06-09 00:06] VITALS: TEMP 97.8
[2018-06-09] MEDS: Levothyroxine 75 MCG TAB PO SCH (06:23)
[2018-06-09 07:31] LABS: BASO % 0.7 % (0.0-2.0); EOS # 0.1 K/uL (0.0-0.7); EOS % 2.6 % (0.0-4.0); HEMOGLOBIN 12.8 g/dL (11.0-16.0); LYMPH # 1.1 K/uL (1.0-4.3); LYMPH % 31.3 % (20.0-40.0); MEAN CELL VOLUME 92.7 fL (81.0-99.0); MEAN CORPUSCULAR HEMOGLOBIN 31.9 pg (27.0-31.0); MEAN CORPUSCULAR HGB CONC 34.4 g/dL (33.0-37.0); MEAN PLATELET VOLUME 8.2 fL (7.2-11.7); MONO # 0.4 K/uL (0.0-0.8); MONO % 10.4 % (0.0-10.0); NEUT # 1.9 K/uL (1.8-7.0); RBC 4.01 Mil/uL (3.80-5.20); RED CELL DISTRIBUTION WIDTH 13.5 % (11.5-14.5); WHITE BLOOD COUNT 3.5 K/uL (4.8-10.8)
[2018-06-09 07:49] LABS: ALB/GLOB RATIO 1.4 (1.0-2.1); ALBUMIN 3.7 g/dL (3.5-5.0); ALT/SGPT 23 U/L (9-52); AST/SGOT 18 U/L (14-36); BLOOD UREA NITROGEN 17 mg/dL (7-17); CALCIUM 9.1 mg/dl (8.6-10.4); GFR NON-AFRICAN AMERICAN > 60
[2018-06-09 08:07] VITALS: BP 95/56
[2018-06-09 08:40] VITALS: PULSE 57
--- NOTE | 2018-06-09 09:14 | CP.PCM.PN ---
Subjective - Date & Time of Evaluation Date of Evaluation: 06/09/18 Time of Evaluation: 09:00 - Subjective Subjective: Progress Note for Dr. Ramesh Quinones's Service Patient was seen and examined at bedside. Patient reports she is back to baseline. Denied any dizziness. Denied fever, chills, headache, chest pain, shortness of breath, abdominal pain, n/v/d/c, or urinary symptoms. Objective - Vital Signs/Intake and Output Vital Signs (last 24 hours): Temp Pulse Resp BP Pulse Ox 97.8 F 57 L 20 95/56 L 97 06/09/18 07:00 06/09/18 08:37 06/09/18 07:00 06/09/18 07:00 06/09/18 07:00 - Medications Medications: Current Medications Aspirin (Aspirin) 325 mg PO DAILY [facility] Last Admin: 06/08/18 10:05 Dose: 325 mg Enoxaparin Sodium (Lovenox) 40 mg SC DAILY [facility] Last Admin: 06/08/18 10:05 Dose: 40 mg Ergocalciferol (Drisdol 50,000 Intl Units Cap) 1 cap PO QWK [facility] Last Admin: 06/08/18 10:05 Dose: 1 cap Levothyroxine Sodium (Synthroid) 75 mcg PO DAILY@0630 [facility] Last Admin: 06/09/18 06:23 Dose: 75 mcg Pantoprazole Sodium (Protonix Ec Tab) 40 mg PO DAILY [facility] Last Admin: 06/08/18 10:05 Dose: 40 mg - Labs Labs: 06/09/18 07:18 06/09/18 07:18 PT 12.4 SECONDS (9.7-12.2) H 06/06/18 23:52 INR 1.1 06/06/18 23:52 APTT 33 SECONDS (21-34) 06/06/18 23:52 - Additional Findings Additional findings: - Constitutional Appears: No Acute Distress - Head Exam Head Exam: NORMAL INSPECTION, NORMOCEPHALIC - Eye Exam Eye Exam: EOMI, Normal appearance, PERRL Pupil Exam: NORMAL ACCOMODATION - ENT Exam ENT Exam: Mucous Membranes Moist, Normal Exam - Respiratory Exam Respiratory Exam: Clear to Ausculation Bilateral, NORMAL BREATHING PATTERN. absent: Decreased Breath Sounds - Cardiovascular Exam Cardiovascular Exam: REGULAR RHYTHM, RRR - GI/Abdominal Exam GI & Abdominal Exam: Soft, Normal Bowel Sounds. absent: Distended, Tenderness - Extremities Exam Extremities Exam: Normal Inspection. absent: Pedal Edema, Tenderness - Neurological Exam Neurological Exam: Alert, Awake, Oriented x3 Neuro motor strength exam: Left Upper Extremity: 5, Right Upper Extremity: 5, Left Lower Extremity: 5, Right Lower Extremity: 5 - Psychiatric Exam Psychiatric exam: Normal Affect, Normal Mood - Skin Skin Exam: Dry, Intact, Normal Color, Warm Assessment and Plan - Assessment and Plan (Free Text) Plan: Syncope --Neurology consulted Dr. Lawson - help appreciated -- Cardiology consulted - Dr. Mcadams help appreciated Imaging: - CT head - no acute pathology - Brain MRI - normal - ECHO with bubble study - pending - Carotid Dopplers - no stenosis - EEG - pending reading Labs: - All WNL - Will have Orthostatics performed every shift - normal Medications: - ASA 81mg daily, as stroke prophylaxis Hypothyroidism - Restarted home synthroid 75mcg daily - TSH / Free T4 WNL Hx Vitamin D Deficiency - Resumed Ergocalciferol Prophylactic Measures: - GI PPX: Protonix - DVT PPX: SCDs, Lovenox - PT Eval - recommend outpatient PT Disposition: Patient is stable for discharge. Please continue taking Aspirin 81mg by mouth daily, continue with your synthroid medication. Please keep yourself hydrated.Please continue with outpatient physical therapy. Please follow up with Dr. Ramesh Quinones within 1 week for routine follow up care and for the results of the sonogram of your heart (ECHO). Please see Dr. Lawson ( Neurology) within 1-2 weeks for follow up visit. All medical management as per Dr. Ramesh Quinones. DW Dr. Ramesh Quinones, Rebecca Keene DO, PGY2
[2018-06-09] MEDS: Enoxaparin 40 mg Syringe SC SCH (09:15)
[2018-06-09] MEDS: Pantoprazole 40 mg EC Tab PO SCH (09:15)
--- NOTE | 2018-06-09 09:21 | CARD ---
APPROVED REPORT Date of service: 06/07/2018 EKG Measurement Heart [id number] <Conclusion> Normal sinus rhythm Normal ECG
--- NOTE | 2018-06-09 12:28 | PN ---
Copied To: Duane Lawson MD Attending MD: Duane Lawson MD DATE: 06/09/2018 TIME OF EVALUATION: 07:05 a.m. NEUROLOGICAL PROBLEM: Syncopal attack. PHYSICAL EXAMINATION: VITAL SIGNS: Blood pressure 96/57, mean arterial pressure of 70, respiratory rate 18, temperature 97.8 with a pulse rate 57. The patient is asymptomatic, lying down comfortably, slept good. No new symptoms. Examination, which is unchanged to compare with my previous examination. MRI of the brain, which does not show any acute ischemic process. EEG is still pending. RECOMMENDATIONS: When medically stable, the patient can be discharged and should have followup visit with me as outpatient. Duane Lawson MD
--- NOTE | 2018-06-09 13:03 | VASCLAB ---
Date of service: 06/08/2018 PROCEDURE: HISTORY: Syncope COMPARISON: None available. TECHNIQUE: Grayscale and duplex Doppler evaluation of the cervical carotid and vertebral arteries were performed. The common carotid, carotid bifurcations and cervical Internal Carotid Artery (ICA) and proximal External Carotid Artery (ECA) were evaluated. The vertebral arteries were evaluated for gross patency and flow direction. Report prepared by Jovi Benson, BS, RVT FINDINGS: RIGHT CAROTID ARTERIES: 1. Common Carotid Artery: No significant focal plaque formation of the right common carotid artery. Maximum Peak Systolic velocity: 110 cm/sec: End-diastolic velocity 20 cm/sec. 2. Carotid Bifurcation: plaque formation. Maximum Peak Systolic velocity: 78 cm/sec: End-diastolic velocity 13 cm/sec. 3. Internal Carotid Artery: Plaque description: 3.1. Proximal Segment: Peak systolic velocity 81 cm/sec: End-diastolic velocity 24 cm/sec - % stenosis 0-15% 3.2. Middle Segment: Peak systolic velocity 96 cm/sec: End-diastolic velocity 30 cm/sec - % stenosis 0-15% 3.3. Distal Segment: Peak systolic velocity 78 cm/sec: End-diastolic velocity 24 cm/sec - % stenosis 0-15% 4. External Carotid Artery: No significant focal plaque formation. Peak systolic velocity 93 cm/sec 5. ICA/CCA Ratio: 1.0 LEFT CAROTID ARTERIES: 1. Common Carotid Artery: No significant focal plaque formation of the left common carotid artery. Maximum Peak Systolic velocity: 87 cm/sec: End-diastolic velocity 19 cm/sec. 2. Carotid Bifurcation: plaque formation. Maximum Peak Systolic velocity: 74 cm/sec: End-diastolic velocity 17 cm/sec. 3. Internal Carotid Artery: Plaque description: 3.1. Proximal Segment: Peak systolic velocity 83 cm/sec: End-diastolic velocity 28 cm/sec - % stenosis 0-15% 3.2. Middle Segment: Peak systolic velocity 93 cm/sec: End-diastolic velocity 28 cm/sec - % stenosis 0-15% 3.3. Distal Segment: Peak systolic velocity 91 cm/sec: End-diastolic velocity 33 cm/sec - % stenosis 0-15% 4. External Carotid Artery: No significant focal plaque formation. Peak systolic velocity 110 cm/sec 5. ICA/CCA Ratio: 1.2 VERTEBRAL ARTERIES: 1. Right Vertebral Artery: The right vertebral artery flow direction is antegrade. 2. Left Vertebral Artery: The left vertebral artery flow direction is antegrade. OTHER FINDINGS: None. IMPRESSION: RIGHT: Duplex scan does not suggest hemodynamically significant stenosis of the right extracranial carotid arteries. LEFT: Duplex scan does not suggest hemodynamically significant stenosis of the left extracranial carotid arteries.
--- NOTE | 2018-06-09 15:21 | CARD ---
APPROVED REPORT Date of service: 06/09/2018 EXAM: Two-dimensional and M-mode echocardiogram with Doppler and color Doppler. Other Information Quality : [employer] : INDICATION Syncope 2D DIMENSIONS IVSd0.8 (0.7-1.1cm)LVDd4.5 (3.9-5.9cm) PWd0.7 (0.7-1.1cm)LVDs2.9 (2.5-4.0cm) FS (%) 35.8 %LVEF (%)65.4 (>50%) M-Mode DIMENSIONS Left Atrium (MM)3.21 (2.5-4.0cm)IVSd1.08 (0.7-1.1cm) Aortic Root2.89 (2.2-3.7cm)LVDd4.30 (4.0-5.6cm) Aortic Cusp Exc.1.96 (1.5-2.0cm)PWd0.80 (0.7-1.1cm) FS (%) 38 %LVDs2.65 (2.0-3.8cm) LVEF (%)69 (>50%) Mitral Valve MV E Jrgmmewa65.8cm/sMV A Rjvrktzd31.5cm/sE/A ratio1.5 TDI E/Lateral E'0.0E/Medial E'0.0 Tricuspid Valve TR Peak Sdawafge727ge/sTR Peak [id number] LEFT VENTRICLE The left ventricle is normal size. There is normal left ventricular wall thickness. The left ventricular function is normal. The left ventricular ejection fraction is within the normal range. No regional wall motion abnormalities noted. The left ventricular diastolic function is normal. RIGHT VENTRICLE The right ventricle is normal size. There is normal right ventricular wall thickness. The right ventricular systolic function is normal. ATRIA The left atrium size is normal. The right atrium size is normal. The interatrial septum is intact with no evidence for an atrial septal defect. AORTIC VALVE The aortic valve is normal in structure and function. No aortic regurgitation is present. There is no aortic valvular stenosis. MITRAL VALVE The mitral valve is normal in structure and function. There is no evidence of mitral valve prolapse. There is no mitral valve stenosis. There is no mitral valve regurgitation noted. TRICUSPID VALVE The tricuspid valve is normal in structure and function. There is trace to mild tricuspid regurgitation. Right ventricular systolic pressure is estimated at less than 30 mmHg. PULMONIC VALVE The pulmonary valve is normal in structure and function. GREAT VESSELS The aortic root is normal in size. The ascending aorta is normal in size. The IVC is normal in size and collapses >50% with inspiration. PERICARDIAL EFFUSION The pericardium appears normal. <Conclusion> Normal bi-ventricular function. No significant valvular abnormality. No pericardial effusion.
--- NOTE | 2018-06-09 16:20 | CARD ---
APPROVED REPORT Date of service: 06/07/2018 EKG Measurement Heart [id number] <Conclusion> Sinus bradycardia Incomplete right bundle branch block Borderline ECG
== END 2018-06-09 14:37 | disposition home or self-care (01) | DRG 641 ==
LOC: C.ER 22:58 → C.9E 06-07 00:55 → C.6T 06-07 02:52
PROVIDERS: ADMIT Internal Medicine Nephrology; ATTEND Internal Medicine Nephrology
DX: E87.6 Hypokalemia (principal); E03.9 Hypothyroidism, unspecified; F07.81 Postconcussional syndrome; K29.50 Unspecified chronic gastritis without bleeding; E86.0 Dehydration; R55 Syncope and collapse; M19.90 Unspecified osteoarthritis, unspecified site; E55.9 Vitamin D deficiency, unspecified

== ENCOUNTER 2018-10-08 09:26 | Outpatient (CLI) | payer BC | END 2018-10-08 09:27 | disposition home or self-care (01) | LOC: C.MAMMO 09:27 ==

== ENCOUNTER 2018-11-11 12:52 | Outpatient (CLI) | payer BC | END 2018-11-11 12:53 | disposition home or self-care (01) | LOC: C.MAMMO 12:52 | DX: R92.8 Other abnormal and inconclusive findings on diagnostic imaging of breast (principal) ==